=== PATIENT | female | born 1995 | race Caucasian/White ===

== ENCOUNTER 2024-08-06 12:22 | Emergency (ER) | payer OTHER ==
[~2024-08-06] VITALS: Ht 157.5 cm; Wt 54.4 kg
[2024-08-06 15:28] LABS: HEMATOCRIT 36.4 % (36.0-45.00); HEMOGLOBIN 12.6 g/dL (12.0-15.00); MEAN CELL VOLUME 92.1 fL (80.00-100.00); MEAN CORPUSCULAR HEMOGLOBIN 31.7 pg (27.00-32.0); MEAN CORPUSCULAR HGB CONC 34.5 g/dl (32.0-36.0); PLATELET COUNT 256 K/uL (150-450); RED BLOOD COUNT 3.96 M/uL (4.00-6.00); RED CELL DISTRIBUTION WIDTH 12.6 % (11.5-14.5)
[2024-08-06 16:17] LABS: INR 1.08; PARTIAL THROMBOPLASTIN TIME 25.4 SECONDS (22.0-34.0); PROTHROMBIN TIME 11.7 SECONDS (9.0-11.5)
[2024-08-06 16:20] LABS: ANION GAP 10 (10.0-20.0); BLOOD UREA NITROGEN 10 mg/dL (7-18); BUN CREA RATIO 14 (7.0-25.0); CALCIUM 9.1 mg/dL (8.5-10.1); CARBON DIOXIDE 25 mEq/L (21-32); CHLORIDE 112 mmol/L (98-107); CREATININE SERUM 0.72 mg/dL (0.55-1.02); GFR 96.45; GLUCOSE FASTING 87 mg/dL (65-100); OSMOLALITY SERUM 283 MOSM/KG (275-295); POTASSIUM 4.15 mEq/L (3.5-5.1); SODIUM 143 mmol/L (136-145)
[2024-08-06 16:24] LABS: HCG QUANTITATIVE < 1 mUI/mL (1-3)
== END 2024-08-06 17:08 | disposition home or self-care (01) ==
LOC: ER 12:24
PROVIDERS: General Practice
DX: N94.6 Dysmenorrhea, unspecified (principal); Z91.018 Allergy to other foods; D25.9 Leiomyoma of uterus, unspecified